=== PATIENT | female | born 1965 | race Caucasian/White ===

== ENCOUNTER 2016-09-22 14:08 | Emergency (ER) | payer MEDICARE | END 2016-09-22 14:50 | disposition home or self-care (01) | LOC: ER1 14:08 | DX: L23.7 Allergic contact dermatitis due to plants, except food (principal); F17.210 Nicotine dependence, cigarettes, uncomplicated | CPT/HCPCS: 96372; 99282; J1100 ==

== ENCOUNTER 2021-10-26 02:33 | Emergency (ER) | payer OTHER ==
[2021-10-26] MEDS ORDERED: CEPHALEXIN500 MG PO (04:40)
== END 2021-10-26 04:46 | disposition home or self-care (01) ==
LOC: ER1 02:33
DX: S60.551A Superficial foreign body of right hand, initial encounter (principal); Z90.49 Acquired absence of other specified parts of digestive tract; W45.8XXA Other foreign body or object entering through skin, initial encounter
CPT/HCPCS: 99283

== ENCOUNTER 2021-11-17 19:06 | Emergency (ER) | payer OTHER ==
[~2021-11-17 19:06] MED LIST: CEPHALEXIN500 MG PO
[2021-11-17] MEDS ORDERED: PREDNISONE 10 M10 MG PO (21:20)
== END 2021-11-17 21:43 | disposition home or self-care (01) ==
LOC: ER1 19:06
DX: L23.7 Allergic contact dermatitis due to plants, except food (principal); Z90.710 Acquired absence of both cervix and uterus
CPT/HCPCS: 96374; 96375; 99283; J1100; J1200

== ENCOUNTER 2021-12-09 15:42 | Inpatient (IN) | payer OTHER ==
[~2021-12-09] VITALS: Ht 160 cm; Wt 75.5 kg
[~2021-12-09 15:42] MED LIST changes: +PREDNISONE 10 M10 MG PO
[2021-12-09 16:04] LABS: HEMOGLOBIN 12.5 gm/dl (12.3-15.3); RED BLOOD COUNT 4.2 M/UL (4.00-5.10); WHITE BLOOD COUNT 16.3 K/UL (4.5-11.0)
[2021-12-09 16:36] LABS: BUN/CREATININE RATIO 20 (0-10)
[2021-12-10 05:46] LABS: HEMOGLOBIN 12.9 gm/dl (12.3-15.3); RED BLOOD COUNT 4.33 M/UL (4.00-5.10)
[2021-12-10 05:47] LABS: WHITE BLOOD COUNT 7.2 K/UL (4.5-11.0)
[2021-12-10 06:12] LABS: BUN/CREATININE RATIO 17 (0-10)
--- NOTE | 2021-12-11 00:24 | NUR ---
WENT AND ASSESSED PATIENT FOR Q1 HR ROUNDING. PATIENT IS SLEEPING AND RESTING WELL
[2021-12-12] MEDS ORDERED: PERCOCET 5/325 T1 EA PO (09:55)
== END 2021-12-12 16:31 | disposition home or self-care (01) | DRG 536 ==
LOC: ER1 15:42 → MED SURG 4 16:44 → CDU 16:44 → MED SURG 4 18:46
PROVIDERS: Emergency Medicine; ADMIT Surgery
DX: S32.502A Unspecified fracture of left pubis, initial encounter for closed fracture (principal); F17.210 Nicotine dependence, cigarettes, uncomplicated; E66.9 Obesity, unspecified; W13.2XXA Fall from, out of or through roof, initial encounter; Z90.49 Acquired absence of other specified parts of digestive tract; Z90.710 Acquired absence of both cervix and uterus; Z68.29 Body mass index [BMI] 29.0-29.9, adult
CPT/HCPCS: 36415; 70450; 71260; 72100; 72125; 72128; 72131; 72170; 80053; 80307; 81001; 82150; 82550; 83605; 83690; 83874; 84703; 85025; 85027; 85610; 85730; 86850; 86900; 86901; 97162; 97530-GP-CQ; 99285; G0480; J2270; J2405; J3010; Q9967